=== PATIENT | male | born 1935 | race Caucasian/White ===

== ENCOUNTER 2016-06-27 11:54 | Emergency (ER) | payer OTHER, MEDICAID ==
[~2016-06-27 11:54] MED LIST: AMARYL2 MG PO; BG MC; DITROPAN XL5 MG PO; ECO81 PO; FERROUS SULFAT325 M2 PO; GLIMEPIRIDE2 M1 PO; GLU500 PO; HUMULIN R100 U/1 M1 SC; HYDRALAZINE HYD10 M1 PO; KEPPRA500 MG PO; LOP50 PO; NIT0.3 TD; NITROGLYCERIN TD; OMEGA 31000 MG PO; PRILOSEC40 MG PO; QUETIAPINE FUMA50 M1 PO; SER25 PO; TOP50 PO; ZES20 PO; ZOC20 PO; [UNRECOGNIZED DRUG - CODE] PO
[2016-06-27 15:27] VITALS: BP 134/94
== END 2016-06-27 15:27 | disposition home or self-care (01) ==
LOC: ED 11:54
DX: S70.11XA Contusion of right thigh, initial encounter (principal); E11.9 Type 2 diabetes mellitus without complications; I10 Essential (primary) hypertension; E78.00 Pure hypercholesterolemia, unspecified; W18.09XA Striking against other object with subsequent fall, initial encounter; Y93.89 Activity, other specified; Y92.89 Other specified places as the place of occurrence of the external cause; Y99.8 Other external cause status